=== PATIENT | female | born 1995 | race Caucasian/White ===

== ENCOUNTER 2018-10-31 17:40 | Inpatient (IN) | payer MEDICAID ==
[~2018-10-31] VITALS: Ht 162.6 cm; Wt 50.8 kg
[2018-10-31 17:42] VITALS: Ht 162.6 cm; Wt 50.8 kg
[2018-10-31 19:55] LABS: BASOPHIL % 0.1 % (0-2); PLATELET COUNT 193 x10^3mcL (130-400); RED CELL DISTRIBUTION WIDTH 12.9 % (11.5-14.5)
[2018-10-31 20:07] LABS: microscopic required? NO
[2018-10-31 20:08] LABS: CALCIUM 8.5 mg/dL (8.5-10.1); CHLORIDE SERUM 107 mmol/L (98-107); CREATININE SERUM 0.7 mg/dL (0.6-1.0); GFR1 > 60 mL/min; GLUCOSE SERUM 123 mg/dL (74-106); POTASSIUM SERUM 3.3 mmol/L (3.5-5.1); SODIUM SERUM 144 mmol/L (136-145)
[2018-10-31 20:11] LABS: urine erythrocyte NEGATIVE (NEGATIVE)
[2018-10-31 20:14] LABS: ALBUMIN 3.9 g/dL (3.4-5.0); ALKALINE PHOSPHATASE 80 U/L (46-116); ALT/SGPT 14 U/L (14-59); AST/SGOT 21 U/L (15-37); BILIRUBIN TOTAL 1.1 mg/dL (0.20-1.00); LIPASE 65 IU/L (73-393); TOTAL PROTEIN, SERUM 6.7 g/dL (6.4-8.2)
[2018-10-31] MEDS ORDERED: KEFLEX250 M1 (22:16)
[2018-10-31 23:08] LABS: AMPHETAMINE QUAL UR NONE DETECTED (See below)
[2018-10-31 23:13] LABS: CHOLESTEROL/HDL RATIO 1.5; MAGNESIUM 1.5 mg/dL (1.8-2.4); PHOSPHOROUS 1.4 mg/dL (2.5-4.9)
[2018-10-31 23:20] LABS: FREE T4 1.49 ng/dL (0.76-1.46); FREE THYROXINE INDEX 2.6 ug/dL (1.4-4.5); T4(THYROXINE) 6.7 ug/dL (4.7-13.3)
[2018-10-31 23:45] VITALS: BP 118/72
[2018-11-01 00:23] LABS: T3 TOTAL 0.96 ng/mL
[2018-11-01 05:58] VITALS: BP 107/59
[2018-11-01 06:14] LABS: PLATELET COUNT 190 x10^3mcL (130-400)
[2018-11-01 06:26] LABS: BASOPHIL % 0 % (0-2)
[2018-11-01 06:33] LABS: CALCIUM 8.7 mg/dL (8.5-10.1); CARBON DIOXIDE 24.8 mmol/L (21-32); CHLORIDE SERUM 105 mmol/L (98-107); CREATININE SERUM 0.6 mg/dL (0.6-1.0); GFR1 > 60 mL/min; GLUCOSE SERUM 122 mg/dL (74-106); MAGNESIUM 1.8 mg/dL (1.8-2.4); PHOSPHOROUS 3.2 mg/dL (2.5-4.9); POTASSIUM SERUM 4.2 mmol/L (3.5-5.1); SODIUM SERUM 139 mmol/L (136-145)
[2018-11-01 10:04] VITALS: BP 97/63
[2018-11-01 17:18] VITALS: BP 121/59
[2018-11-01 19:25] VITALS: BP 106/70
[2018-11-02 05:32] VITALS: BP 107/61
[2018-11-02 08:51] VITALS: BP 102/60
[2018-11-02] MEDS ORDERED: COMPAZINE5 M1 PO (09:02)
[2018-11-02 10:50] VITALS: BP 102/60
== END 2018-11-02 13:35 | disposition home or self-care (01) | DRG 776 ==
LOC: ED 17:40 → MU 22:36 → DU 23:21 → MU 23:25
PROVIDERS: Emergency Medicine; ADMIT Internal Medicine
DX: F12.188 Cannabis abuse with other cannabis-induced disorder (principal); E83.39 Other disorders of phosphorus metabolism; E83.42 Hypomagnesemia; S52.92XA Unspecified fracture of left forearm, initial encounter for closed fracture; E87.6 Hypokalemia; D72.829 Elevated white blood cell count, unspecified; R11.10 Vomiting, unspecified; V49.9XXA Car occupant (driver) (passenger) injured in unspecified traffic accident, initial encounter; Y92.411 Interstate highway as the place of occurrence of the external cause
CPT/HCPCS: 84439; J1885; J2270; J2405; J2550; J2765; J3010; J7030; Q0092; Q0162